=== PATIENT | male | born 1970 | race Caucasian/White ===

== ENCOUNTER 2023-03-02 13:18 | Outpatient (CLI) | payer OTHER, SELFPAY ==
--- NOTE | 2023-03-02 13:25 | ECG_ITS ---
Measurements Intervals [place] Rate: 85 P: 48 MS: 133 QRS: -52 QRSD: 137 T: 57 QT: 389 QTc: 464 Interpretive Statements SINUS RHYTHM WITH OCCASIONAL VENTRICULAR PREMATURE COMPLEXES MARKED LEFT AXIS DEVIATION [QRS AXIS < -30] INTRAVENTRICULAR CONDUCTION DELAY [130+ ms QRS DURATION] NO PREVIOUS ECG AVAILABLE FOR COMPARISON Electronically Signed On 03-03-2023 14:57:41 CDT by Lizzy Gottlieb M.D.
== END 2023-03-02 13:19 | disposition home or self-care (01) ==
PROVIDERS: PCP Family Medicine; Visit Provider Physician Assistant Medical
DX: R00.2 Palpitations (principal); I45.9 Conduction disorder, unspecified
CPT/HCPCS: 93005

== ENCOUNTER 2023-03-12 15:10 | Emergency (ER) | payer OTHER, SELFPAY ==
--- NOTE | ~2023-03-12 | XR_ITS ---
EXAMINATION: XR chest 2V DATE: 03/12/2023 15:24 INDICATION: Chest pain. TECHNIQUE: Frontal and lateral views of the chest were obtained. COMPARISON: Chest single view 04/09/2010 FINDINGS: The chest demonstrates clear lungs without pneumonia, pleural effusion, or pneumothorax. Th e heart size is normal. IMPRESSION: 1. No acute cardiopulmonary disease. Reviewed, dictated and finalized at location A.
--- NOTE | ~2023-03-12 | CT_ITS ---
EXAMINATION: CTA chest PE protocol DATE: 03/12/2023 18:08 INDICATION: Generalized chest pain TECHNIQUE: Computed tomography angiography (CTA) of the chest was performed with 100 mL Omnipaque-350 intravenous contrast timed to evaluate the pulmonary arteries. Coronal maximum intensity projection 3D-reconstructions were created by the technologist. The dose-length product (DLP) was 1120.08 mGy-cm . Automated exposure control and iterative reconstruction technique were employed. COMPARISON: None. FINDINGS: The pulmonary arteries are well-opacified. No pulmonary embolism is identified. No patholog ically enlarged thoracic lymph nodes are identified. The heart size is normal. The lungs are free of acute opacities. No pleural effusion or pneumothorax. There are bridging osteophytes at multiple leve ls in the spine, consistent with diffuse idiopathic skeletal hyperostosis (DISH). IMPRESSION: 1. No pulmonary embolism or acute cardiopulmonary abnormality. Reviewed, dictated and finalized at location F.
--- NOTE | 2023-03-12 15:11 | ECG_ITS ---
Measurements Intervals [place] Rate: 83 P: 49 SD: 164 QRS: -57 QRSD: 136 T: 63 QT: 380 QTc: 447 Interpretive Statements SINUS RHYTHM WITH OCCASIONAL VENTRICULAR PREMATURE COMPLEXES LEFT AXIS DEVIATION RIGHT BUNDLE BRANCH BLOCK ABNORMAL ECG COMPARED TO ECG 03/02/2023 13:32:47 NO SIGNIFICANT CHANGES Electronically Signed On 03-13-2023 16:29:04 CDT by Wilson Valderrama M.D.
[2023-03-12 15:15] VITALS: BP 170/92; PULSE 85; RESP 18; TEMP 36.7; O2SAT 99
[2023-03-12 15:27] LABS: Basophils Absolute Auto 0.1 K/mm3 (0.0-0.1); Eosinophils Absolute Auto 0.3 K/mm3 (0-0.3); Eosinophils Percent Auto 2.6 % (0-4.4); Hematocrit 49.8 % (42.0-52.0); Hemoglobin 16.9 g/dL (14.0-18.0); Immature Granulocyte Absolute 0.03 K/mm3 (0.00-0.031); Immature Granulocyte Percent A 0.3 % (0-0.5); Lymphocytes Absolute Auto 2.94 K/mm3 (0.9-3.2); Lymphocytes Percent Auto 28.4 % (18.3-44.2); Mean Corpuscular HGB Conc 33.9 g/dl (32-36); Mean Corpuscular Volume 91.2 fl (80-100); Mean Platelet Volume 10.7 fl (7.4-10.4); Monocytes Absolute Auto 0.8 K/mm3 (0.1-0.6); Monocytes Percent Auto 7.6 % (2.6-8.5); Neutrophils Absolute Auto 6.2 K/mm3 (1.3-6.7); Neutrophils Percent Auto 60.1 % (45.5-73.1); Platelet Count Result 175 k/mm3 (150-375); Red Blood Count 5.46 M/mm3 (4.6-6.20); Red Cell Distribution Width 13.2 % (11.5-14.5); White Blood Count 10.3 K/mm3 (4.5-10.0)
[2023-03-12 15:35] LABS: Alanine Aminotransferase 38 U/L (6-50); Albumin Level 4.5 g/dL (3.5-5.1); Alkaline Phosphatase 53 U/L (38-126); Anion Gap 9 mmol/L (8-16); Aspartate Amino Transferase 24 U/L (17-59); Bilirubin,Total 0.6 mg/dL (0.2-1.3); Blood Urea Nitrogen 16 mg/dL (9-20); Carbon Dioxide 26 mmol/L (22-30); Chloride 102 mmol/L (98-107); Estimated CRCL calculation 138 ml/min; Estimated Glomerular Filt Rate > 60; Glucose 125 mg/dL (65-110); Lipase 132 U/L (23-300); Potassium 4.2 mmol/L (3.4-5.0); Sodium 137 mmol/L (137-145)
[2023-03-12 15:38] LABS: INR 1.1; Prothrombin Time 13.7 Seconds (11.1-14.7)
[2023-03-12 15:39] LABS: Partial Thromboplastin Time 27.6 SECONDS (22.3-36.8)
[2023-03-12 15:48] LABS: Troponin I < 0.012 ng/mL (0.000-0.034)
[2023-03-12 16:03] VITALS: O2SAT 99
[2023-03-12 16:07] VITALS: BP 132/81; PULSE 79; RESP 16; O2SAT 99
--- NOTE | 2023-03-12 16:27 | ED.CHESTPAIN ---
HPI - Chest Pain General Chief Complaint: Chest Pain Stated Complaint: chest pains Time Seen by Provider: 03/12/23 16:26 Source: patient Mode of arrival: ambulatory Limitations: no limitations History of Present Illness HPI narrative: Patient is a 52-year-old male with a history of hypertriglyceridemia, hyperlipidemia, type 2 diabetes, obesity presenting to the emergency department for evaluation of chest pain. Patient reports chest pain that began in August 2022 and lasted for approximately a week. Described as pressure overlying the left chest with radiation to the back. No jaw, shoulder, neck pain. No arm pain. No syncopal events. No lightheaded or dizziness. No cough or dyspnea. Patient states that pain recurred 2 weeks ago and he was seen by his primary care provider who referred him to cardiology. Patient has yet to be seen by education administrator Dr. Greco to whom he was referred but has an appointment this month. Patient reports constant pain that is worse with exertional activity. No positional component. Not worsened with movement. No ripping or tearing sensation to the flank. Patient states he is quite worried regarding the pain. Patient denies history of hypertension. He is a former smoker, cessation greater than 24 years ago. Patient without family history of sudden cardiac or family members in the immediate family with history of DC. Patient denies any recent long car or air travel. No history of coagulopathy. Related Data Home Medications Medication Instructions Recorded Confirmed pseudoephedrine HCl 30 mg tablet 30 mg PO Q12H 01/12/23 01/12/23 (Sudafed) Allergies Allergy/AdvReac Type Severity Reaction Status Date / Time cephalexin Allergy Unknown Unknown Verified 01/12/23 14:54 clarithromycin Allergy Unknown Unknown Verified 01/12/23 14:54 Review of Systems Review of Systems: CONSTITUTIONAL: Denies fever, chills, or sweats. EYES: Denies visual changes, redness, or discharge. ENT: Denies rhinorrhea, congestion, sore throat, or otalgia. CARDIOVASCULAR: Reports chest pain without palpitations, or edema. RESPIRATORY: Denies cough or dyspnea. GASTROINTESTINAL: Denies abdominal pain, nausea, vomiting, or diarrhea. GENITOURINARY: Denies dysuria or hematuria. SKIN: Denies rash or itching. MUSCULOSKELETAL: Denies back pain, joint pain, or myalgia. NEUROLOGIC: Denies headache, numbness, or weakness. [facility] Past Medical History Medical History Chronic rhinitis Diabetic neuropathy associated with diabetes mellitus due to underlying condition Foot callus Hyperlipidemia associated with type 2 diabetes mellitus Lumbar disc disease Normal colonoscopy (~04/2020) Obstructive sleep apnea Type 2 diabetes mellitus without complication, without long-term current use of insulin Family History Family History Other Diabetes mellitus Family history of elevated blood lipids Family history of malignant neoplasm of breast in first degree relative Hypertension Social History Social History Smoking packs per day: 1.5 Smoking cigarettes per day: 30.0 Years smoked: 20 Smoking pack-years: 30.00 Smoking status: Former smoker Tobacco type: cigarettes Second hand tobacco smoke exposure: No Smoking end date: 11/30/99 Alcohol intake: never Substance use: never Substance use type: does not use Lack of Transportation: No Lack of Food: Sometimes True Current Housing: I Have Housing Concerned About Future Housing: No Difficulty Paying Gas/Electric Bills: No Difficulty Paying for Meds: No Currently Unemployed: No Education: High School Diploma/GED Difficulty w/ Childcare or Family Care: No Living arrangements: with family Occupation/Education: occupation Gender identity (if verbalized by the patient): Male Spir
[2023-03-12 16:57] VITALS: BP 115/80; PULSE 85; RESP 18; O2SAT 97
[2023-03-12 18:50] LABS: Troponin I < 0.012 ng/mL (0.000-0.034)
[2023-03-12 19:19] VITALS: BP 123/81; PULSE 69; RESP 14; O2SAT 96
== END 2023-03-12 19:20 | disposition home or self-care (01) ==
PROVIDERS: Emergency Medicine; Emergency Provider Emergency Medicine; PCP Family Medicine
DX: R07.89 Other chest pain (principal); E11.69 Type 2 diabetes mellitus with other specified complication; E78.49 Other hyperlipidemia; E11.40 Type 2 diabetes mellitus with diabetic neuropathy, unspecified; G47.33 Obstructive sleep apnea (adult) (pediatric); Z87.891 Personal history of nicotine dependence; I45.10 Unspecified right bundle-branch block; I49.3 Ventricular premature depolarization; E66.9 Obesity, unspecified; Z68.37 Body mass index [BMI] 37.0-37.9, adult; Z79.84 Long term (current) use of oral hypoglycemic drugs
CPT/HCPCS: 36415; 71046; 71275; 80053; 83690; 84484; 85025; 85610; 85730; 93005; 99284; Q9967

== ENCOUNTER 2023-04-09 07:49 | Outpatient (RCR) | payer OTHER, SELFPAY ==
[2023-04-09 10:53] VITALS: BMI 38.1
[2023-04-09 10:55] VITALS: BMI 38.1
== END 2023-04-09 09:02 | disposition home or self-care (01) ==
LOC: ANHDMC 07:49
PROVIDERS: PCP Family Medicine; Visit Provider Family Medicine
DX: E11.9 Type 2 diabetes mellitus without complications (principal); Z71.3 Dietary counseling and surveillance
CPT/HCPCS: 97802

== ENCOUNTER 2023-10-12 11:21 | Outpatient (CLI) | payer OTHER, SELFPAY ==
--- NOTE | ~2023-10-12 | XR_ITS ---
XR toe 1st LT min 2V DATE: 10/12/2023 11:43 INDICATION: Chronic great toe pain. No known injury. TECHNIQUE: 3 views COMPARISON: None FINDINGS: There is mild osteoarthritic spurring at the first metatarsophalangeal joint. No fracture, dislocation, periosteal reaction or bone destruction, or radiopaque soft tissue foreign body or subcutaneous emphysema. IMPRESSION: Mild osteoarthritis at first metatarsophalangeal joint Reviewed, dictated and finalized at location B. UP ATTENDANT
== END 2023-10-12 11:22 | disposition home or self-care (01) ==
PROVIDERS: PCP Family Medicine; Visit Provider Podiatrist Foot & Ankle Surgery
DX: D50.9 Iron deficiency anemia, unspecified (principal); M19.072 Primary osteoarthritis, left ankle and foot
CPT/HCPCS: 73660

== ENCOUNTER 2024-12-22 10:23 | Outpatient (CLI) | payer OTHER, SELFPAY ==
--- NOTE | ~2024-12-22 | MR_ITS ---
EXAMINATION: MR knee LT wo con DATE: 12/22/2024 10:50 INDICATION: Left knee pain TECHNIQUE: Magnetic resonance imaging (MRI) of the left knee was performed without intravenous contra st. Sequences included coronal PD-weighted FSE, coronal PD-weighted FS FSE, sagittal T2-weighted FSE , sagittal PD-weighted FS FSE and axial PD weighted fat saturated FSE. COMPARISON: None. FINDINGS: Medial compartment: There is a small longitudinal vertical tear extending approximately 1.2 cm AP at the inferior articul ar surface at the peripheral third of the body the medial meniscus. Articular cartilage is normal. Lateral compartment: Lateral meniscus is normal. Small region of deep chondral fissuring at the medial aspect of the centr al to posterior lateral tibial plateau. Small focus of underlying subarticular edema-like signal dobson ge along the shoulder the intercondylar eminence. Patellofemoral compartment: Small region of deep chondral ulceration with underlying small focus of edema-like signal change at t he superomedial aspect of the lateral patellar facet along side the apical ridge. There is additional severe partial thickness chondral fissuring more caudally along the apical ridge and lateral facet. Additional deep chondral ulceration and fissuring with underlying cortical irregularity and minimal s ubarticular edema-like signal change at the trochlear groove and inferomedial aspect of the lateral t rochlea. Partial-thickness cartilage loss with minimal chondral surface regularity along the medial a spect of the medial trochlea. Ligaments and tendons: Anterior and posterior cruciate ligaments are normal. The medial collateral ligament and fibular joshua ateral ligament complex are normal. Mild enthesopathy with small enthesophytes at the patellar and ti bial insertion of the quadriceps and patellar tendons. The visualized medial and lateral hamstring te ndons as well as the iliotibial band are normal. Fluid: Physiologic amount of fluid in the joint space. No loose osteochondral bodies identified. Small Crum 's cyst. Osseous/other: Aside from the previous noted small foci of subarticular edema-like signal change there is normal mar row signal throughout. No fracture or pathologic marrow replacing process. IMPRESSION: 1. Small longitudinal vertical tear at the body the medial meniscus. 2. Mild osteoarthritis with small region of moderate to high-grade chondromalacia at the lateral tibi al plateau and larger regions in the patellofemoral compartment. Reviewed, dictated and finalized at location A. CAL CODING TECHNICIAN IMPRESSION: 1. Small longitudinal vertical tear at the body the medial meniscus. 2. Mild osteoarthritis with small region of moderate to high-grade chondromalac ia at the lateral tibial plateau and larger regions in the patellofemoral franck rtment.
== END 2024-12-22 10:24 | disposition home or self-care (01) ==
LOC: MICIMG 10:23
PROVIDERS: PCP Family Medicine; Visit Provider Orthopaedic Surgery
DX: M17.12 Unilateral primary osteoarthritis, left knee (principal)
CPT/HCPCS: 73721

== ENCOUNTER 2025-04-03 18:40 | Emergency (ER) | payer OTHER, SELFPAY ==
--- NOTE | 2025-04-03 18:42 | ED.SKABFB ---
HPI - Skin/Abscess/Foreign Bdy General Chief complaint: Skin/Abscess/Foreign Body Stated complaint: boil on leg Time Seen by Provider: 04/03/25 19:13 Source: patient and RN notes reviewed Mode of arrival: ambulatory Limitations: dementia History of Present Illness HPI narrative: 54-year-old male presents with concern for a 5 day history of a boil on his inner thigh. Reports it has gotten worse over the last 4-5 days. He reports he has had these before but never had to have them drained. Denies drainage from this. He denies body aches, chills, fever, sweats MD complaint: other (Redness) Related Data Allergies Allergy/AdvReac Type Severity Reaction Status Date / Time cephalexin Allergy Unknown Unknown Verified 04/03/25 18:55 clarithromycin Allergy Unknown Unknown Verified 04/03/25 18:55 Review of Systems Review of Systems: CONSTITUTIONAL: Denies malaise, chills, sweats, or fever. EYES: Denies redness, or discharge. ENT: Denies rhinorrhea, congestion, swollen lips, swollen tongue CARDIOVASCULAR: Denies chest pain, palpitations, or edema. RESPIRATORY: Denies cough or dyspnea. GASTROINTESTINAL: Denies abdominal pain, nausea, vomiting SKIN: Reports redness, swelling to the right inner thigh. Denies purulent drainage, vesicles, bullae, numbness, pain beyond proportion MUSCULOSKELETAL: Denies joint pain or myalgia. NEUROLOGIC: Denies headache. All systems reviewed & are unremarkable except as noted in HPI and below PMFSH Past Medical History Medical History Ingrown toenail Foot callus Diabetic neuropathy associated with diabetes mellitus due to underlying condition Normal colonoscopy (~04/2020) Chronic rhinitis Hyperlipidemia associated with type 2 diabetes mellitus Lumbar disc disease Obstructive sleep apnea Type 2 diabetes mellitus without complication, without long-term current use of insulin Surgical History Surgical History History of colonoscopy History of appendectomy Family History Family History Other Diabetes mellitus Family history of elevated blood lipids Family history of malignant neoplasm of breast in first degree relative Hypertension Social History Social History (Updated 02/01/25 @ 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) Smoking packs per day: 1.5 Smoking cigarettes per day: 30.0 Years smoked: 20 Smoking pack-years: 30.00 Smoking status: Former smoker Tobacco type: cigarettes Second hand tobacco smoke exposure: No Smoking end date: 11/30/99 Alcohol intake: former Alcohol use details: socially Substance use: never Substance use type: does not use Do You Feel Safe in your Home?: Yes Lack of Transportation: No Lack of Food: Never True Current Housing: I Have Housing Concerned About Future Housing: No Difficulty Paying Gas/Electric Bills: No Difficulty Paying for Meds: No Currently Unemployed: No Education: High School Diploma/GED Difficulty w/ Childcare or Family Care: No Living arrangements: with family Occupation/Education: occupation Additional occupation/education comments: sales - [employer] Gender identity (if verbalized by the patient): Male Spiritual care concerns: No Agree to blood products: Yes Comments At time of signature, agree with nursing past medical, surgical, social and family history. There is no relevant family history pertinent to the presenting complaint Exam Narrative: GENERAL: Well-appearing, well-nourished, and in no acute distress. HEAD: Normocephalic, atraumatic. EYES: PERRLA, conjunctivae clear ENT: Mucous membranes moist. NECK: Supple. No lymphadenopathy CHEST: Clear to auscultation. No respiratory distress. HEART: Regular rate and rhythm. SKIN: Warm, dry. Approximately 5 cm area of Erythema, induration, tenderness, warmth with sharp margins noted to the inner right thigh, with a small amount of mid fluctuation, and another 7 cm surrounding erythema. No vesicles, bullae, necrosis, ecchymosis, crepitus noted. NEURO: Alert and oriented x3. PSYCH: Normal mood and affect Course Course Emergency Course: Patient is aware of diagnosis, understands and agrees to treatment plan. Anticipatory guidance given. Patient agrees to follow-up as directed and is aware of reasons to seek care at the emergency department. Portions of this record may have been created with voice recognition software Level of Care: Express Care Visit Vital Signs Vital signs: Reviewed. Procedures Abscess I/D lower extremity: Date of Incision: 04/03/25 Time of Incision: 19:17 Side (if applicable): right Local Anesthetic: lidocaine 1% Amount of anesthesia used (mL): 4 Technique: incised with #11 blade MDM - Skin/Abscess/Foreign Bdy MDM Narrative Medical decision making narrative: I evaluated this in the psychiatric. History is obtained from patient who is an independent historian and physical exam was performed.? Available medical records were reviewed. ? Exam findings and relevant testing show no acute concerns or changes; patient is non-toxic appearing and is in no distress. No risk factors or findings concerning for epidural abscess, diskitis, vertebral osteomyelitis, cord compression, cauda equina, vertebral fracture or bone malignancy, AAA, or pyelonephritis. Patient instructed to consider further imaging and workup through their primary care physician as an outpatient if symptoms persist. Does not appear at this time to be erythema multiforme, bullous, SJS, TEN; no evidence at this time to suggest RMSF, NSTI, endocarditis or Lyme disease; patient looks well, nontoxic and is tolerating oral intake; no neurologic signs or symptoms; no headache, photophobia or neck pain; afebrile.? Patient does not have history of of penetrating trauma, laceration, blunt trauma, recent surgery, immunosuppression, malignancy, obesity, alcoholism, corticosteroid use.? Discussed the importance of follow-up, patient agrees; question, cellulitis versus necrotizing soft tissue infection versus abscess.?? Patient is appropriate for outpatient treatment and follow-up. Critical Care Time Critical Care Time Critical Care Time: No Discharge Plan Discharge Clinical Impression: Abscess of skin or subcutaneous tissue Patient Disposition: Home Condition: Stable Instructions: Antibiotic Form, Abscess Incision and Drainage (DC) Additional Instructions: You have had an abscess drained at [facility]. You may shower - let the soapy water clean your wound, do not scrub it. Keep your wound covered to prevent transmission of infection to other people. Follow up with your primary care physician or in the Emergency Department in 2-3 days for a wound check. Go to the Emergency Department immediately if you develop any of the following symptoms: Fevers, Increased redness or swelling around where your abscess was, Increased pain, or Generalized weakness or vomiting Please return to ED or see your doctor in 2 days for wound recheck. Please Keep the wound covered and dry. Once a day: wash the wound with soap/water, apply bacitracin or neosporin and re-cover the wound. If you have any worsening of symptoms, including severe pain/swelling/numbness/changes in sensation/weakness, redness which expands more than it is right now or any other concerns please return to the ED immediately. Patient Language: [place] Prescriptions: New sulfamethoxazole-trimethoprim 800-160 mg tablet 1 tablet PO Q12H 7 Days Qty: 14 0RF No Action rosuvastatin 5 mg tablet 5 mg PO DAILY Qty: 90 3RF saxagliptin 5 mg tablet 5 mg PO QAM Qty: 90 0RF Follow-up/Referrals: Judy Dickinson MD [Primary Care Provider] - Time of Disposition: 19:43
--- OUTSIDE RECORDS SUMMARY | 2025-04-03 18:43 | XMS_ITS | Referral Summary ---
Author Organization [facility] [address] Address [address] [place] [address] Care Team Providers Care Network Consultant Name Role Phone Judy Dickinson MD Primary Care Provider Allergies Active Allergy Reactions Criticality Noted Date Comments Gabapentin Active Problems Problem Noted Date Diagnosed Date Pain in pelvis 01/28/2011 Social History Tobacco Use Types Packs/Day Years Used Date Smoking Tobacco: Never Assessed Personal Safety Answer Date Recorded Getting School Help Needed Not on file 02/13 Sex and Gender Information Value Date Recorded Sex Assigned at Not on file 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
--- OUTSIDE RECORDS SUMMARY | 2025-04-03 18:43 | XMS_ITS | Clinical Summary ---
Author Organization [facility] Address [address] [place] [address] Care Team Providers Care Solar Energy Consultant And Designer Name Role Phone Unavailable Primary Care Provider Unavailabl e Source Comments [facility],non-owned Affiliates and Associated Physician Practices is amultiple site organization consisting of ambulatory clinics and hospital sitesin [place], [place], [place] and [place]. This disclosure is being madepursuant to the Care Everywhere program and may not contain all information available regarding this patient. Last updated 18.[facility] Allergies Active Allergy Reactions Criticality Noted Date Comments Gabapentin 12/02/2010 Medications * Be aware that medications may not be up to date on this document. Alwaysverify current medications with the patient. silodosin (RAPAFLO) 8 MG capsule daily. Active oxybutynin (DITROPAN) 5 MG tablet 3 times daily. 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 12/02/2010 Degeneration of cervical intervertebral disc 01/2011 Social History Tobacco Use Types Packs/Day Years Used Date Smoking Tobacco: Former Smokeless Tobacco: Never Alcohol Use Standard Drinks/Week Comments No 0 (1 standard drink = 0.6 oz pur e alcohol) Sex and Gender Information Value Date Recorded Sex Assigned at Not on file Legal Sex Male 9:45 AM PLAN NURSE Gender Identity Not on file Sexual Orientation Not on file Last Filed Vital Signs Vital Sign Reading Time Taken Comments Blood Pressure - - Pulse - - Temperature - - Respiratory Rate - - Oxygen Saturation - - Inhaled Oxygen Concentration - - Weight 111.1 kg (245 lb) 12/02/2010 11:26 AM PLAN NURSE Height 190.5 cm (6' 3 ) 12/02/2010 11:26 AM PLAN NURSE Body Mass Index 30.62 12/02/2010 11:26 AM PLAN NURSE Plan of Treatment Health Maintenance Due Date Last Done Comments COLOGUARD (AGES 45-75) - COL ON CA SCREENING 1969 COLON MONITORING 1969 COLONOSCOPY - COLON CA SCREENING 1969 CT COLONOGRAPHY - COLON CA SCREENING 1969 Colorectal Cancer Screening 1969 FIT - COLON CA SCREENING 1969 FLEX SIG - COLON CA SCREENING 1969 LIPID TESTING 1969 HIV SCREENING 1984 HEPATITIS C SCREENING 10/21/1987 DTAP/TDAP/TD VACCINES (1 - Tdap) 1988 HEPATITIS B VACCINE (1 of 3 - 19+ 3-dose series) 1988 PNEUMOCOCCAL VACCINE 50+ (1 of 1 - PCV) 2019 ZOSTER VACCINE (1 of 2) 2019 COVID-19 VACCINE (1 - 2023-2 5 season) 2024 DEPRESSION SCREENING 11/30/2024 INFLUENZA VACCINE (Season Ended) 2025 HIB VACCINE Aged Out No longer eligi ble based on patient's age to complete this topic HPV VACCINE Aged Out No longer eligi ble based on patient's age to complete this topic MENINGOCOCCAL (Group B) VACC INE SHARED DECISION-MAKING Aged Out No longer eligibl e based on patient's age to complete this topic MENINGOCOCCAL GROUPS A/C/Y/W VACCINE Aged Out No longer eligible b ased on patient's age to complete this topic
--- OUTSIDE RECORDS SUMMARY | 2025-04-03 18:43 | XMS_ITS | Encounter Summary ---
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
--- OUTSIDE RECORDS SUMMARY | 2025-04-03 18:43 | XMS_ITS | Clinical Summary ---
Author Organization 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 Gender Identity Not on file Sexual Orientation Not on file Plan of Treatment Health Maintenance Due Date Last Done Comments Colorectal Cancer Screening Colonoscopy (10 Years) 1969 Annual Physical 1972 Hepatitis C 1987 DTaP, Tdap and Td Vaccines ( 1 - Tdap) 1988 Hepatitis B Vaccines (1 of 3 - 19+ 3-dose series) 1988 Pneumococcal Vaccine: 50+ Years (1 of 1 - PCV) 2019 Zoster Vaccines (1 of 2) 2019 COVID-19 Vaccine (2023-2 5 season) 2024 12/08/2021, 02/04/2021, 01/07/2021 Meningococcal B Vaccine Aged Out No l onger eligible based on patient's age to complete this topic Meningococcal Vaccine Aged Out No ramírez kathryn eligible based on patient's age to complete this topic RSV Immunizations Under 20 Months Aged Out No longer eligible b ased on patient's age to complete this topic Insurance [facility]
--- OUTSIDE RECORDS SUMMARY | 2025-04-03 18:43 | XMS_ITS | Data Portability ---
Author Organization [facility], Main Office Address [address] [place] [address] Care Team Providers Care Retort Loader Name Role Phone AMEE JEAN-BAPTISTE Primary Care Provider [phone] AMEE JEAN-BAPTISTE Referring Provider [phone] Assessment No assessment recorded. Plan of Treatment Reminders Order Date Submit Date Provider Last Modified By Organization Details Last Modified Time Details Appointments None recorded. Lab None recorded. Referral None recorded. Procedures None recorded. Surgeries None recorded. Imaging None recorded. Medication Orders clotrimaz ole-betam ethasone 1 %-0.05 % topical cream 2019 020 INTERFACE [id number], [address] [facility], [place], [place], [id number], 0 13:35:55 Patient TargetsNo targets recorded. Patient Instructions Encounter Date Encounter Id Patient Instructions Last Modified By Organization Details Last Modified Time 02/23/2020 [id number] sleep apnea: car e instructions Not available 02/27/2020 21:04:04 diarrhea: care instructions Not available 02/27/2020 21:04:04 type 2 diabetes: care instructions Not available 02/27/2020 21:04:04 body mass index: care instructions Not available 02/27/2020 21:04:04 learning about healthy weight Not available 02/27/2020 21:04:04 He will follow u p with me only after he has his scope and if he is still having symptoms. On today's visit I spent a total of {{30 35 40 45* 50 55 60}} minutes [id number] with the patient and over 50% of this time was spent discussing treatment options, risks/benefits of each option and alternatives and answering his questions. Addendum: I called him on 02/27/[address] Rendon's contact number. He states he is doing significantly better with the Lotrisone Cream and he has been thinking about the colonoscopy. He was extremely anxious/shocked when he was in the office and I told him he might have something more serious than just hemorrhoids . He states he has calmed down and asks if it would be OK for him to wait a few months for a scope until the Covid 19 issue gets more stable. I advised I am perfectly fine with him waiting, but he must not wait too long. He voiced understanding. Not available 02/27/2020 21:00:56 Reason for Referral None Reported. Problems Name Problem SNOMED Code Status Onset Date Resolution Date Notes Provider Name and Address Organization Details Recorded Time Perianal dermatitis 725068036 Active 2019 Gricelda Esteves MD [address] [place] [address], [facility] 0 13:35:12 Lesion of rectum 688619397 Active 2019 Gricelda Esteves MD [address] [place] [address] 5, [facility] [place] 0 20:48:13 Pile easily reducible 114773766 Active 201902/23/20: No Tx - tx dermatitis and get scope Gricelda Esteves MD [address] [place] [address],[place] [address], [facility] 0 20:56:29 Loose stool 318924614 Active 2019 Gricelda Esteves MD [address] [place] [address],[place] [address], [facility] [place] 0 20:48:17 Body mass index 30+ - obesity 228020469 Active 2019 Gricelda Esteves MD [address] [place] [address],[address], [place], [place], [address] [place] [address] 5, [facility] [place] 0 20:48:09 Type 2 diabetes mellitus without complicati on 239227271 Active 2019 Gricelda Esteves MD [address] [place] [address],[address], [place], [place], [address] [place] [address] 5, [facility] [place] 0 20:48:37 Obstructiv e sleep apnea syndrome 77045192 Active 2019 Gricelda Esteves MD [address] [place] [address],[address], [place], [place], [address] [place] [address] 5, [facility] 0 20:48:22 Problem Notes None recorded. Procedures Surgical History Date Name Laterality Status Provider Name and Address Organization Details Recorded Time 0 Colonoscopy completed Gricelda Esteves MD [address] [place] [address],[address], [place], [place], [address] [place] [address], [facility] 04/30/2020 12:19:38 0 Anoscopy completed Gricelda Esteves MD [address] [place] [address],[address], [place], [place], [address] [place] [address], [facility] 02/27/2020 20:29:12 0 Colonoscopy completed Gricelda Esteves MD [address] [place] [address],[address], [place], [place], [address] [place] [address], [facility] 02/27/2020 20:18:52 5 Appendectomy completed Gricelda Esteves MD [address] [place] [address],[address], [place], [place], [address] [place] [address], [facility] 02/27/2020 20:18:24 Imaging Results None recorded. Procedure Notes None recorded. Medical Equipment None Reported. Allergies No known drug allergies Medications Name Sig Start Date Stop Date Status Note LastModified by Organization Details LastModified Time metformin 500 mg tablet 02/22 completed Not Available Not Available Not Available triamcino lone acetonide 0.5 % topical cream 02/22 completed Not Available Not Available Not Available meloxicam 15 mg tablet Take 1 tablet every day by oral route. active 02/23/20: He takes this only about 2 times monthly. He denies taking any other NSAID products . Not Available Not Available Not Available metformin 1,000 mg tablet active Not Available Not Available Not Available clotrimaz ole-betam ethasone 1 %-0.05 % topical cream Apply 1 g twice a day by topical route as directed for 14 days. 2019 active Not Available Not Available Not Avai lable Adult Aspirin Regimen 81 mg tablet,de layed release Take 1 tablet every day by oral route. active 02/23/20: He takes for preventi on only. He denies taking any other aspirin products . Not Available Not Available Not Available Vitals Date Recorded Body height Body mass index (BMI) Body weight Body temperature Provider Name and Address Organization Details Last Updated DateTime 02/23/2020 190.5 cm 35 kg/m2 409276.86 g 98.4 [degF] Cortney Mosquera [facility] [place] 02/23/2020 10:54:26 Social History Question Answer Notes LastModified by Organizat ion Details LastModified Time Tobacco Smoking Status Former Smoker Cortney galloway [facility] 02/23/2020 10:51:39 Do You Or Have You Ever Used E-cigarettes Or Vape? Never Used Electronic Cigarettes Information not available 02/23/2020 What Is Your Occupation? Sales Information not available 02/23/2020 Alcohol Use No Information n ot available 02/23/2020 Caffeine Use No Former Information not available 02/23/2020 Illicit Drug Use No Information not available 02/23/2020 What Was The Date Of Your Most Recent Tobacco Screening? 02/23/2020 Information not available 02/23/2020 Do You Or Have You Ever Used Smokeless Tobacco? Never Used Smokeless Tobacco Information not available 02/23/2020 How Much Tobacco Do You Smoke? 1 PPD Information not available 02/23/2020 How Many Years Have You Smoked Tobacco? 15 Information not available 02/23/2020 Sex: Male Functional Status None recorded. Mental Status None recorded. Family History Relationship Description Onset Age of this Age Resolved Age Notes LastModified by Organization Details LastModified Time Father Malignant neoplasm of prostate 65 Not available 2019 10:51:07 Father Cerebrovascu lar accident 65 Not available 10:51:24 Father Diabetes mellitus 65 Not available 2019 10:51:31 Mother Malignant tumor of breast 66 Not available 2019 10:51:16 Medical History Condition Response Coronary Artery Disease N Other N Atrial Fibrillation N Kidney Stones N Hyperthyroidism N Hernia N Depression N COPD N Hypothyroidism N Glaucoma N Accidental Bowel Leakage N Headaches/Migraines N Deep Vein Thrombosis N Cardiac Dysrhythmia N Anxiety Disorder N MRSA/VRE Exposure N Genital Herpes N Diverticulosis N Cancer N Stroke N Head Trauma N Crohn's Disease N Genital Warts N Liver Disease/Hepatitis N HIV/AIDS N High Cholesterol N Irritable Bowel Syndrome N Kidney Disease N Autoimmune Disease N Anemia N Celiac Disease N Arthritis/Gout N Anal/Rectal Trauma/Injury N Diabetes Y Cataracts N Bleeding Disorder N Seizures/Epilepsy N Congestive Heart Failure (CHF) N Diverticulitis N Heart Attack N Asthma N Reflux/GERD N Ulcerative Colitis N Sleep Apnea Y Mitral Valve Prolapse N Aneurysm N Heart Disease N Pulmonary Embolism N Hypertension N Colon/Rectal Polyps N Past Encounters Encounter ID Performer Location Encounter Start Date Encounter Closed Date Diagnosis/Indication Diagnosis SNOMED-CT Code Diagnosis ICD10 Code Diagnosis Note [id number] Gricelda Esteves MD Main Office [address] [address] 02/23/2020 10:49:06 02/23/2020 12:49:25 Perianal dermatitis 745738118 L30.9 I discussed how to use the Lotrisone Cream. I want him to use it consistent ly BID for 2 weeks and then stop. He then needs to start using a good skin protectant (I wrote down Desitin, Calmosepte ne and Pranicura) . He needs to consistent ly be following good skin care techniques (I referred him to the Pranicura website for these and briefly discussed these with him). Lesion of rectum 6694693 06 R19.8 I discussed with him that I am fairly confident that this is a benign lesion and may also simply be part of the RP internal hemorrhoid . I however cannot rule out something more significan t. I spoke with Michele Rendon MD about possibly doing a flexible sigmoidosc opy in the office given the current situation with the Covid-19 pandemic and limited supply of personal protective equipment. Dr. Rendon felt that given the limited exam I was able to do and the question of a lesion that would need to have a biopsy, it would be best to just go ahead and do a colonoscop y. He provided me with the phone # for Levi to call to set up a colonoscop y without the need for an office examinatio n first. He is due for a screening colonoscop y anyway. I asked him to get me a copy of his previous colonoscop y. Sandi easily reducible 27 8583070 K64.1 Stage 1 - 2 internal hemorrhoid s: I discussed hemorrhoid s in general with him as well as the treatment options. He now understand s that any non-surgic al procedure (infrared coagulatio n or banding) would be done on his internal hemorrhoid s. I discussed with him that I want to get his rash cleared up, try to get his loose BM's better and have a colonoscop y before considerin g doing any treatment on his hemorrhoid s. I think most of his symptoms are due to the skin rash. Loose stool 255860137 R1 9.5 He of course needs to consistent ly eat a high fiber diet limiting simple sugars and concentrat ing on complex carbohydra desi, higher protein and good fats. I advised he needs to be taking his metformin right at the time he starts eating the largest meals of his day (ideally breakfast and dinner). I suggested that instead of immediatel y increasing from 500 mg BID to 1000 mg BID, he should take 1000 mg with 1 dose and 500 mg with the second dose and slowly increase to the 1000 mg BID (i.e. let his body get used to a higher dose ). I also advised he should ask Dr. Jean-Baptiste if he could try the longer acting metformin as it might be easier on his GI system. I warned him it would probably be more expensive. I also advised he should start psyllium capsules at very low dose (start with 1 capsule daily) and very slowly increase to try to bulk his BM's somewhat. I advised he is shooting for 1 - 3 times daily BM's that are soft (Borden Scale type 4). Body mass index 30+ - obesity 175883634 Z68.35 He definitely needs to be working on his diet as above. He states he and his are trying to get out and walk more. I advised this is good for [facility] [employer], but he also needs to add strength training to build muscle mass. He has been frustrated with his difficulty with losing weight. Type 2 roberth betes mellitus without complication 858293115 E11.9 See above with the metformin. He sees Dr. Jean-Baptiste for this. Obstructiv e sleep apnea syndrome 52223122 G47.33 He consisentl y uses his CPAP. Health Concerns Section Related Observation LastModified by Organization Detai ls LastModified Time None Recorded Concern Status LastModified by Organization Details LastModified Time None Recorded Advance Directives Directive None Recorded Payers Encounter Date Sequence Insurance Name Policy Number Policy Perry Covered Member ID Perry Member ID Guarantor Name 02/23/2020 1 [facility] [id number] Levi Camarillo [id number] Levi Camarillo Notes Date Note Type Note Provider Name and Address Organization Details Recorded Time 02/23/2020 text/html This is a very pleasant 49 year old man who has had symptoms from his hemorrhoids on and off for about 10 years. Initially these were very intermittent. He feels his symptoms became more persistent and bothersome about 5 years ago. He states his symptoms currently are bad enough that my quality of life generally sucks . He presents today for an evaluation and to discuss his treatment options. Bleeding: He occasionally has a very small amount of bright red blood on the wipe with a BM. He has never had heavy bleeding or leakage of blood in between BM's. Pain: He occasionally has pain after a BM that makes it difficult to sit for about 1 hour. He does not have lasting pain. His BM's themselves are not painful. Itching: He has a lot of external anal itching and irritation. This has been worsening over the last several months. This is his main symptom. Discharge: It is always hard to get clean after BM's because of swelling and irritation. He occasionally has slight difficulty staying clean - he has to re-wipe shortly after a BM. He has never had enough drainage that he has to wear a pad. Prolapse: Not that he feels or has to manually reduce. External swelling: He gets external swelling after BM's and if he is more flared. He does not have persistent swelling. Discomfort: He has the external itching/irritation/ discomfort/pain as above. He has very intermittent and minor internal symptoms of pressure, a sense of being blocked when trying to have a BM and a sense of incomplete emptying after BM's. Previous Hemorrhoid Treatment: He has tried multiple OTC creams and ointments (including triple antibiotic ointment. He has a prescription for 0.5% triamcinolone cream written on 12/14/19 and has used it about 1 - 2 times weekly. He does not feel it works any better than the OTC. He has never had a procedure on his hemorrhoids. Previous Lower GI Endoscopy: He had a negative colonoscopy in 2009 and he did have some polyps. He thinks he was told to repeat in 10 years but really is not sure. He was told he had hemorrhoids but nothing was said about having any treatment on them. Bowel Habits: He has had long standing issues with having multiple loose (somewhat urgent) BM's daily. He admits he does not consistently eat a high fiber diet or drink enough water. He states his loose BM's have gotten much worse since going on metformin for his diabetes. He states he was taking 500 mg BID but has recently been increased to 1000 mg BID. He takes his first dose in the morning on an empty stomach. He does take his second dose with dinner. He currently has 3 - 5 BM's daily and they typically are a Borden Scale type 5 - 7. He does not take a fiber supplement. He does not take anything for diarrhea. Gricelda Esteves MD [address], [place], [address], [facility] 02/27/2020 21:04:09
--- OUTSIDE RECORDS SUMMARY | 2025-04-03 18:43 | XMS_ITS | Clinical Summary ---
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 Gender Identity Not on file Sexual Orientation Not on file Plan of Treatment Health Maintenance Due Date Last Done Comments Colon Cancer Screening-Colonoscopy 1969 Depression Screening 1969 Hepatitis C Screening 1969 Prostate Cancer Screening-PSA 1969 DTaP/Tdap/Td Vaccine (1 - Tdap) 1980 Hepatitis B Screening 1987 Regular Well Visit/Exam 18-64 1987 Zoster Vaccine (1 of 2) 2019 Covid-19 Vaccine (2023-2 5 season) 2024 12/08/2021, 02/04/2021, 01/07/2021 Influenza Vaccine (#1) 2024 Pneumococcal vaccine <65 Aged Out No longer eligible based on patient's age to complete this topic Insurance [facility] Care Teams Electrotype Finisher Relationship Specialty Start Date End Date Judy Dickinson MD PCP - General 07/17/11
[2025-04-03 18:48] VITALS: BP 141/79; PULSE 77; RESP 18; TEMP 36.6; O2SAT 98
[2025-04-03] MEDS: LIDOCAINE 1% LOCAL INJ 2 ML AMPUL 4 ML INFILTRATE (19:20)
== END 2025-04-03 19:49 | disposition home or self-care (01) ==
PROVIDERS: Emergency Provider Nurse Practitioner; PCP Family Medicine
DX: L02.415 Cutaneous abscess of right lower limb (principal); E11.9 Type 2 diabetes mellitus without complications; E78.5 Hyperlipidemia, unspecified; Z87.891 Personal history of nicotine dependence
CPT/HCPCS: 10060; 87070; 87075; 87205; 99213; G0463; J2003

== ENCOUNTER 2025-06-06 08:19 | Outpatient (CLI) | payer OTHER, SELFPAY ==
--- OUTSIDE RECORDS SUMMARY | 2025-06-06 08:33 | XMS_ITS | Data Portability ---
Author Organization [facility], Main Office Address [address] [place] [address] Care Team Providers Care Paper Cap Machine Operator Name Role Phone AMEE JEAN-BAPTISTE Primary Care Provider AMEE JEAN-BAPTISTE Referring Provider Assessment No assessment recorded. Plan of Treatment Reminders Order Date Submit Date Provider Last Modified By Organization Details Last Modified Time Details Appointments None recorded. Lab None recorded. Referral None recorded. Procedures None recorded. Surgeries None recorded. Imaging None recorded. Medication Orders clotrimaz ole-betam ethasone 1 %-0.05 % topical cream 2019 020 INTERFACE [id number], [address] [facility], [place], [place], [id number], 0 13:35:55 Patient TargetsNo targets recorded. Patient [...] today's visit I spent a total of 45 minutes hmxb-lj-aoss with the patient and over 50% of [...] might have something more serious than just hemorrhoids. He states he has calmed down and [...] Address Organization Details Recorded Time Perianal dermatitis 793205274 Active 2019 Gricelda Esteves MD [address] [place] [address],[place] [address], [facility] [place] 0 13:35:12 Lesion of rectum 984554871 Active 2019 Gricelda Esteves MD [address] [place] [address],[place] [address], [facility] [place] 0 20:48:13 Pile easily reducible 209996229 Active 201902/23/20: No Tx - tx dermatitis and get scope Gricelda Esteves MD [address] [place] [address],[address] [place] [address], [facility] [place] 0 20:56:29 Loose stool 229449597 Active 2019 Gricelda Esteves MD [address] [place] [address],[place] [address], [facility] [place] 0 20:48:17 Body mass index 30+ - obesity 725293185 Active 2019 Gricelda Esteves MD [address] [place] [address],[address], [place], [address], [facility] [place] 0 20:48:09 Type 2 diabetes mellitus without complicati on 872048091 Active 2019 Gricelda Esteves MD [address] [place] [address],[address], [place], [address] [place] [address] 5, [facility] [place] 0 20:48:37 Obstructiv e sleep apnea syndrome 71024988 Active 2019 Gricelda Esteves MD [address] [place] [address],[address], [place], [address] [place] [address] 5, [facility] 0 20:48:22 Problem Notes None recorded. Procedures Surgical History Date Name Laterality Status Provider Name and Address Organization Details Recorded Time 0 Colonoscopy completed Gricelda Esteves MD [address] [place] [address],[address], [place], [address] [place] [address], [facility] 04/30/2020 12:19:38 0 Anoscopy completed Gricelda Esteves MD [address] [place] [address],[address], [place], [address] [place] [address], [facility] 02/27/2020 20:29:12 0 Colonoscopy completed Gricelda Esteves MD [address] [place] [address],[address], [place], [address] [place] [address], [facility] 02/27/2020 20:18:52 5 Appendectomy completed Gricelda Esteves MD [address] [place] [address],[address], [place], [address] [place] [address], [facility] 02/27/2020 20:18:24 Imaging Results None recorded. [...] Updated DateTime 02/23/2020 190.5 cm 35 kg/m2 789457.86 g 98.4 [degF] Cortney Mosquera [facility] 02/23/2020 10:54:26 Social History Question Answer Notes LastModified by [employer] ion Details LastModified Time Tobacco Smoking Status Former Smoker Cortney Mosquera [facility] 02/23/2020 10:51:39 Alcohol Use No Information n ot available 02/23/2020 Caffeine Use No Former Information not available 02/23/2020 Illicit Drug Use No Information not available 02/23/2020 What Was The Date Of Your Most Recent Tobacco Screening? 02/23/2020 Information not available 02/23/2020 How Much Tobacco Do You Smoke? 1 PPD Information not available 02/23/2020 How Many Years Have You Smoked Tobacco? 15 Information not available 02/23/2020 Sex: Male Functional Status Question Answer Note LastModified by Organizat ion Details LastModified Time Do you or have you ever used smokeless tobacco? Never used smokeless tobacco Information not available 02/23/2020 What is your occupation? Sales Information not available 02/23/2020 Do you or have you ever used e-cigarettes or vape? Never used electronic cigarettes Information not available 02/23/2020 Mental Status None recorded. Family History Relationship [...] Kidney Stones N Hyperthyroidism N Hernia N Hypothyroidism N COPD N Depression N Glaucoma N Accidental Bowel Leakage N [...] Note 7751 Gricelda Esteves MD Main Office [facility] [address] [address] 02/23/2020 10:49:06 02/23/2020 12:49:25 Perianal dermatitis 016736131 L30.9 I discussed how to use the [...] discussed these with him). Lesion of rectum 0644165 06 R19.8 I discussed with him that [...] previous colonoscop y. Sandi easily reducible 27 4982672 K64.1 Stage 1 - 2 internal hemorrhoid [...] due to the skin rash. Loose stool 121774655 R1 9.5 He of course needs to [...] his body get used to a higher dose). I also advised he should ask Dr. [...] 3 times daily BM's that are soft (Rumson Scale type 4). Body mass index 30+ - obesity 174013249 Z68.35 He definitely needs to be working on his diet as above. He states he and his are trying to get out and walk more. I advised this is good for [employer] [facility] [employer], but he also needs to add strength training to build muscle mass. He has been frustrated with his difficulty with losing weight. Type 2 roberth betes mellitus without complication 151640212 E11.9 See above with the metformin. He sees Dr. Jean-Baptiste for this. Obstructiv e sleep apnea syndrome 45907414 G47.33 He consisentl y uses his CPAP. Health Concerns Section Related Observation LastModified by Organization Detai ls LastModified Time None Recorded Concern Status LastModified by Organization Details LastModified Time None Recorded Advance Directives Directive None Recorded Payers Insurance Date Sequence Insurance Name Policy Number Policy Perry Covered Member ID Perry Member ID Guarantor Name 02/23/2020 1 [facility] [id number] Levi Camarillo [id number] Levi Camarillo Notes Date Note Type Note [...] enough that my quality of life generally sucks. He presents today for an evaluation and [...] BM's daily and they typically are a Rumson Scale type 5 - 7. He does not take a fiber supplement. He does not take anything for diarrhea. Gricelda Esteves MD [address], [place], [address], [facility] 02/27/2020 21:04:09
--- OUTSIDE RECORDS SUMMARY | 2025-06-06 08:33 | XMS_ITS | Encounter Summary ---
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
--- OUTSIDE RECORDS SUMMARY | 2025-06-06 08:33 | XMS_ITS | Clinical Summary ---
Author Organization [facility] [employer] Address [address] [place] [address] Care Team Providers Care Twine Reeling Machine Operator Name Role Phone Unavailable Primary Care Provider Unavailabl e Source Comments [facility] [employer],non-owned Affiliates and Associated Physician Practices is amultiple site organization consisting of ambulatory clinics and hospital sitesin [place], [place], [place] and [place]. This disclosure is being madepursuant to the Care Everywhere program and may not contain all information available regarding this patient. 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
--- OUTSIDE RECORDS SUMMARY | 2025-06-06 08:33 | XMS_ITS | Clinical Summary ---
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
--- OUTSIDE RECORDS SUMMARY | 2025-06-06 08:33 | XMS_ITS | Referral Summary ---
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 CHO[facility] CHOICE PLUS Care Teams Civil Structural Designer Relationship Specialty Start Date End Date Judy Dickinson MD PCP - General 07/17/11
--- OUTSIDE RECORDS SUMMARY | 2025-06-06 08:33 | XMS_ITS | Clinical Summary ---
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 Gender Identity Not on file Sexual Orientation [...] 2024 12/08/2021, 02/04/2021, 01/07/2021 Influenza Vaccine (#1) 2025 Pneumococcal vaccine <65 Aged Out No longer eligible based on patient's age to complete this topic Insurance [facility] CHOICE PLUS [facility]MO/PPO Address: [address] [place] [address] [facility] CHOICE PLUS [facility] HMO/PPO Address: [place] [address] Care Teams Occupational Analyst Relationship Specialty Start Date End Date Judy Dickinson MD PCP - General 07/17/11
--- NOTE | 2025-06-06 08:34 | ECG_ITS ---
Test Date: 2025-06-06 08:43:34 Measurements Intervals [place] Rate: 73 P: 22 AK: 180 QRS: -45 QRSD: 133 T: 17 QT: 390 QTc: 432 Interpretive Statements SINUS RHYTHM MARKED LEFT AXIS DEVIATION [QRS AXIS < -30] INCOMPLETE RIGHT BUNDLE-BRANCH BLOCK BORDERLINE ECG No previous ECG available for comparison Electronically Signed On 06-07-2025 07:26:11 CDT by Sony Del Valle M.D.
[2025-06-06 09:04] LABS: Anion Gap 10 mmol/L (4-12); Blood Urea Nitrogen 13 mg/dL (9-20); Calcium 9.1 mg/dL (8.4-10.2); Carbon Dioxide 24 mmol/L (22-30); Chloride 103 mmol/L (98-107); Estimated Glomerular Filt Rate > 60; Glucose 213 mg/dL (65-110); Potassium 4.5 mmol/L (3.4-5.0); Sodium 137 mmol/L (137-145)
== END 2025-06-06 08:20 | disposition home or self-care (01) ==
LOC: ANHSURGERY 08:30
PROVIDERS: Anesthesiology; PCP Family Medicine; Visit Provider Orthopaedic Surgery
DX: E11.69 Type 2 diabetes mellitus with other specified complication (principal); Z01.818 Encounter for other preprocedural examination
CPT/HCPCS: 36415; 80048; 93005

== ENCOUNTER 2025-06-13 01:07 | Day surgery (SDC) | payer OTHER, SELFPAY ==
[2025-05-31 15:31] VITALS: BMI 38.5
--- NOTE | 2025-05-31 15:42 | PC.NURSE ---
Report to the Outpatient Waiting Room, entrance under the green pavilion located off [facility], at time __1000__ on date _06/13/25__. Planned Procedure Time: __1200_.? Time changes happen often and if your time is changed the preop area will call you the afternoon before. - You and your visitor will be asked to self-screen and do not enter if you have any COVID symptoms. Please call surgeon if you need to reschedule. - A mask is optional within the hospital at this time. Patients may have clear liquids (water, carbonated beverages, clear teas, apple juice) until 3 hours prior to surgery with a maximum of 20 ounces. - No food from midnight until time of surgery and no smoking, or chewing tobacco (or any form of nicotine). No chewing gum, candy or mints. - Infants may have breast milk until 4 hours before surgery, infant formula 6 hours prior to surgery. - Children will be allowed to drink immediately following surgery.? If applicable, please bring a bottle or sippy cup to assist with drinking. Juice, water, soda, and popsicles are readily available.? For infants on formula, please bring formula the day of surgery.? Pacifiers are allowed. Take only the following medications with a SIP of water on the morning of surgery: _EYE GTTS WILL BE FINISHED DO NOT STOP ANY OF YOUR OTHER PRESCRIPTION MEDICATIONS PRIOR TO SURGERY EXCEPT THE FOLLOWING Hold all vitamins and supplements for 3 days per anesthesiologist. Medications to discontinue per physician Date to take last dose Please no make-up, nail norwegian, hairspray, perfume, deodorant, or body powder the day of surgery.? No jewelry (including any body piercings) or valuables the day of surgery, leave them at home.? Please take a shower or bath the night before, or the morning of, surgery with an antibacterial soap.? Wear comfortable, loose fitting clothing.? Children are encouraged to wear pajamas. - Jewelry must be removed prior to entering the operating room.? Rings and piercings that are not removed may be cut off. - The hospital will not accept responsibility for valuables.? - Please leave all valuables, including medications, at home the day of surgery. If you are going home after surgery, a licensed taxicab driver must drive you home.? - NO public transportation without another adult if you receive anesthesia. - We recommend that an adult stay with you for 24 hours following discharge. - We also recommend that you do not drive, make important decision, drink alcoholic beverages, or take any drugs that were not prescribed by your health care provider for at least 24 hours after your discharge time. For Pediatric surgeries, we recommend two adults accompany the child home. Follow any additional instructions given to you from your surgeon. Telephone instructions given to _PATIENT._and asked if any additional questions and then verbalized understanding. Patient advised to call surgeon office or pre surgery nurse liaison [phone] if any additional questions.
[2025-06-13] VITALS (9 sets, daily range): BP systolic 121–147; BP diastolic 72–80; PULSE 68–85; RESP 12–20; TEMP 36.4; O2SAT 93–98; BMI 37.3
--- OUTSIDE RECORDS SUMMARY | 2025-06-13 01:14 | XMS_ITS | Referral Summary ---
Author Organization [facility] [address] 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
--- OUTSIDE RECORDS SUMMARY | 2025-06-13 01:14 | XMS_ITS | Clinical Summary ---
Author Organization [facility] [address] [facility] Address [address] [place] [address] Care Team Providers Care Commission Associate Name Role Phone Judy Dickinson MD Primary Care Provider [phone] Allergies Active Allergy Reactions Criticality Noted Date [...] on file Legal Sex Male 10:49 AM CONTACT REPRESENTATIVE Gender Identity Not on file Sexual Orientation Not on file Plan of Treatment Health Maintenance Due Date Last Done Comments Colon Cancer Screening-Colonoscopy 1969 Depression Screening 1969 Hepatitis C Screening 1969 Prostate Cancer Screening-PSA 1969 DTaP/Tdap/Td Vaccine (1 - Tdap) 1980 Hepatitis B Screening 1987 Regular Well Visit/Exam 18-64 1987 Zoster Vaccine (1 of 2) 2019 Covid-19 Vaccine (4 2023-2 5 season) 2024 12/08/2021, 02/04/2021, 01/07/2021 Influenza Vaccine (#1) 2025 Pneumococcal vaccine <65 Aged Out No longer eligible based on patient's age to complete this topic Insurance [facility] H[facility]/PPO Address: [address] [place] [address] [facility] CHOICE [facility] H[facility]/PPO Address: [place] [address] Care Teams Commission Associate Relationship Specialty Start Date End Date Judy Dickinson MD PCP - General 07/17/11
--- OUTSIDE RECORDS SUMMARY | 2025-06-13 01:14 | XMS_ITS | Data Portability ---
Author Organization [facility], Main Office Address [address] [place] [address] Care Team Providers Care Mercerizer Machine Operator Name Role Phone AMEE JEAN-BAPTISTE Primary Care Provider [phone] AMEE JEAN-BAPTISTE Referring Provider Assessment No assessment recorded. Plan of Treatment Reminders Order Date Submit Date Provider Last Modified By Organization Details Last Modified Time Details Appointments None recorded. Lab None recorded. Referral None recorded. Procedures None recorded. Surgeries None recorded. Imaging None recorded. Medication Orders clotrimaz ole-betam ethasone 1 %-0.05 % topical cream 2019 020 INTERFACE [facility] #[id number], [address] [facility], [place], [place], [id number], 0 13:35:55 Patient TargetsNo targets recorded. Patient [...] I spent a total of 45 minutes effy-eq-xvut with the patient and over 50% of [...] Address Organization Details Recorded Time Perianal dermatitis 976958289 Active 2019 Gricelda Esteves MD [address] [place] [address],[place] [address], [facility] [place] 0 13:35:12 Lesion of rectum 235934936 Active 2019 Gricelda Esteves MD [address] [place] [address],[place] [address], [facility] [place] 0 20:48:13 Pile easily reducible 865247752 Active 201902/23/20: No Tx - tx dermatitis and get scope Gricelda Esteves MD [address] [place] [address],[address] [place] [address], [facility] [place] 0 20:56:29 Loose stool 341143746 Active 2019 Gricelda Esteves MD [address] [place] [address],[place] [address], [facility] [place] 0 20:48:17 Body mass index 30+ - obesity 860334060 Active 2019 Gricelda Esteves MD [address] [place] [address],[address], [place], [address], [facility] [place] 0 20:48:09 Type 2 diabetes mellitus without complicati on 248229270 Active 2019 Gricelda Esteves MD [address] [place] [address],[address], [place], [place], [address] [place] [address] 5, [facility] [place] 0 20:48:37 Obstructiv e sleep apnea syndrome 44699616 Active 2019 Gricelda Esteves MD [address] [place] [address],[address], [place], [address] [place] [address] 5, [facility] 0 20:48:22 Problem Notes None recorded. Procedures Surgical History Date Name Laterality Status Provider Name and Address Organization Details Recorded Time 0 Colonoscopy completed Gricelda Esteves MD [address] [place] [address],[address], [place], [place], [address] [place] [address], [facility] 04/30/2020 12:19:38 0 Anoscopy completed Gricelda Esteves MD [address] [place] [address],[address], [place], [address] [place] [address], [facility] 02/27/2020 20:29:12 0 Colonoscopy completed Gricelda Esteves MD [address] [place] [address],[address], [place], [address] [place] [address], [facility] 02/27/2020 20:18:52 5 Appendectomy completed Gricelda Esteves MD [address] [place] [address],[address], [place], [address] [place] [address], [facility] 02/27/2020 20:18:24 Imaging Results None recorded. Procedure [...] Updated DateTime 02/23/2020 190.5 cm 35 kg/m2 672471.86 g 98.4 [degF] Cortney Mosquera [facility] 02/23/2020 10:54:26 Social History Question Answer Notes LastModified by [employer] ion Details LastModified Time Tobacco Smoking Status Former Smoker Cortney Mosquera [facility] 02/23/2020 10:51:39 Alcohol Use No Information n [...] Kidney Stones N Hyperthyroidism N Hernia N COPD N Depression N Glaucoma N Hypothyroidism N Accidental Bowel Leakage N Headaches/Migraines N Deep Vein Thrombosis N Cardiac Dysrhythmia N Anxiety Disorder N MRSA/VRE Exposure N Genital Herpes N Diverticulosis N Cancer N Stroke N Head Trauma N Crohn's Disease N Genital Warts N Liver Disease/Hepatitis N HIV/AIDS N High Cholesterol N Irritable Bowel Syndrome N Autoimmune Disease N Kidney Disease N Anemia N Celiac Disease N [...] Note 7751 Gricelda Esteves MD Main Office [facility] [address] [address] 02/23/2020 10:49:06 02/23/2020 12:49:25 Perianal dermatitis 706415206 L30.9 I discussed how to use the [...] discussed these with him). Lesion of rectum 9685373 06 R19.8 I discussed with him that [...] previous colonoscop y. Sandi easily reducible 27 5386341 K64.1 Stage 1 - 2 internal hemorrhoid [...] due to the skin rash. Loose stool 558889588 R1 9.5 He of course needs to [...] 3 times daily BM's that are soft ([place] Scale type 4). Body mass index 30+ - obesity 807354259 Z68.35 He definitely needs to be working on his diet as above. He states he and his are trying to get out and walk more. I advised [facility] [employer], but he also needs to add strength training to build muscle mass. He has been frustrated with his difficulty with losing weight. Type 2 roberth betes mellitus without complication 302466865 E11.9 See above with the metformin. He sees Dr. Jean-Baptiste for this. Obstructiv e sleep apnea syndrome 16708199 G47.33 He consisentl y uses his CPAP. Health Concerns Section Related Observation LastModified by Organization Detai ls LastModified Time None Recorded Concern Status LastModified by Organization Details LastModified Time None Recorded Advance Directives Directive None Recorded Payers Insurance Date Sequence Insurance Name Policy Number Policy Perry Covered Member ID Perry Member ID Guarantor Name 02/23/2020 1 [facility] [id number] Levi Camarillo [id number] Levi Camarillo Notes Date Note Type Note [...] BM's daily and they typically are a [place] Scale type 5 - 7. He does not take a fiber supplement. He does not take anything for diarrhea. Gricelda Esteves MD [address], [place], [address], [facility] 02/27/2020 21:04:09
--- OUTSIDE RECORDS SUMMARY | 2025-06-13 01:14 | XMS_ITS | Clinical Summary ---
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
--- OUTSIDE RECORDS SUMMARY | 2025-06-13 01:14 | XMS_ITS | Clinical Summary ---
Author Organization [facility] Address [address] [place] [address] Care Team Providers Care Service Worker Name Role Phone Unavailable Primary Care Provider Unavailabl e Source Comments [facility],non-owned Affiliates and Associated Physician Practices is amultiple site organization consisting of ambulatory clinics and hospital sitesin [place], [place], [place] and [place]. This disclosure is being madepursuant to the Care Everywhere program and may not contain all information available regarding this patient. 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
--- OUTSIDE RECORDS SUMMARY | 2025-06-13 01:14 | XMS_ITS | Encounter Summary ---
Author Organization [facility] Address [address] [place] [address] Care Team Providers Care Photographer Still Name Role Phone Unavailable Primary Care Provider Unavailabl e Encounter Details Date Type Department Care Team (Late st Contact Info) Description 05/07/2019 Abstract [facility] CONVERSION [id number] [place], [place] [id number] , Generic Conversion, Social History Tobacco Use Types Packs/Day Years Used Date Smoking Tobacco: Never Assessed Sex and Gender Information Value Date Recorded Sex Assigned at Not on file Legal Sex Male 10:23 PM [employer] Gender Identity Not on file Sexual Orientation Not on file documented as of this encounter Plan of Treatment Not on file documented as of this encounter Visit Diagnoses Not on filedocumented in this encounter
--- NOTE | 2025-06-13 09:23 | WPDHPUPDATE1 ---
History and Physical Update Update Date/Time: 06/13/25 09:23 History and Physical has been reviewed, including an updated exam of the patient. There are NO changes in the patient's condition. Risks, benefits, and alternatives have been discussed and questions answered. Patient agrees to proceed with procedure.
[2025-06-13] MEDS: ACETAMINOPHEN 500 MG TABLET 1000 MG PO (10:55)
[2025-06-13] MEDS: KETOROLAC 15 MG/ML VIAL (*BKC) IV PUSH (10:55)
--- NOTE | 2025-06-13 11:07 | P.PNAN_ITS ---
Anes - Eval Final PreProcedure Day of Procedure 06/13/25 11:07 Patient weight: obese Heart: regular rate and rhythm Lungs: clear to auscultation Airway: Mallampati scale class III and special considerations large neck Neurological: alert and oriented Last oral intake: >/= 8 hours ASA classification: III Emergent: no Anesthetic plan: proceed Anesthesia type and monitoring: general LMA and standard monitoring Results Review: All pre-operative results and documents have been reviewed as part of the pre- operative evaluation. Informed Consent: The patient's anesthetic plan and its attendant risks and benefits were discussed with the patient/family/POA. Questions were solicited and answers provided to the satisfaction of the patient/family/POA.
[2025-06-13] MEDS: CLINDAMYCIN 900 MG/D5W 50 ML 900 MG/50 ML PIGGYBACK 50 MG IVPB (11:25)
[2025-06-13] MEDS: SCOPOLAMINE 1 MG PATCH 1 PATCH TRANSDERM (11:25)
[2025-06-13] MEDS: BUPIVACAINE/EPINEPHRINE 0.5% 50 ML VIAL 20 ML INFILTRATE (12:12)
--- NOTE | 2025-06-13 12:21 | P.OP_ITS ---
Procedure Note - Detailed Date of Procedure 06/13/25 Pre-op Diagnosis Left knee medial meniscus tear Post-op Diagnosis Same Procedure Performed Arthroscopic partial medial meniscectomy, left knee. Surgeon Elliott Bradford MD Anesthesia General Findings Acute significant tear of the medial meniscus. Medial femur chondromalacia grade 0, medial tibia grade 0. Lateral femur chondromalacia grade 0, lateral tibia grade 0. Patellar grade 2, trochlea grade 3. Description of Procedure The patient was identified and the surgical site confirmed and signed in the preoperative holding area. Antibiotics were started per protocol, and the patient was brought to the operative room and transferred to the OR table. A general anesthetic was administered. Supine position with the operative lower extremity position in the leg ann after placement of a well padded rudy rniquet. The leg support was lowered and the contralateral limb was supported with a soft bolster. The knee was prepped and draped in the usual sterile fashion. A time-out was performed. The portal sites were marked and infiltrated with 0.5% Marcaine 20 mL. The limb was exsanguinated and the tourniquet inflated to 300 mL Hg. Standard inferolateral and inferomedial portals were established. Inflow was obtained with the saline pump. The camera was introduced. Diagnostic inspection of the joint was accomplished. The meniscus was debrided with the arthroscopic shaver and punches until stable. The radiofrequency probe was also used for further d?bridement. Gentle chondroplasty of the trochlea. The arthroscopic instruments were removed. The tourniquet released and wounds closed with subcutaneous 4-0 Monocryl absorbable suture. Steri strips and a sterile dressing were applied. A light elastic wrap was placed. The patient was extubated and brought to the recovery room in stable condition. Estimated Blood Loss 5 Drains No Complications No immediate complications Condition Stable Disposition PACU [facility] Billing Surgery - Charge Forward: Surgery Billing
[2025-06-13] MEDS: LACTATED RINGERS 1,000 ML 30 ML IV CONT ×2 (12:31→13:05)
[2025-06-13] MEDS: fentaNYL CITRATE INJ (*CRX) 100 MCG/2 ML VIAL 25 MCG IV PUSH ×4 (13:06→13:26)
== END 2025-06-13 14:50 | disposition home or self-care (01) ==
PROVIDERS: PCP Family Medicine; Visit Provider Orthopaedic Surgery
PROC: (CPT 29870; principal; 2025-06-13 12:00)
DX: M23.332 Other meniscus derangements, other medial meniscus, left knee (principal); M22.42 Chondromalacia patellae, left knee; E11.9 Type 2 diabetes mellitus without complications; E66.9 Obesity, unspecified; Z68.37 Body mass index [BMI] 37.0-37.9, adult
CPT/HCPCS: 29881; 82948; A9270; J1100; J1885; J2003; J2250; J2405; J2704; J3010; J7120